=== PATIENT | female | born 1960 | race Caucasian/White ===

== ENCOUNTER 2025-06-04 12:25 | Outpatient (CLI) | payer MEDICARE, SELFPAY ==
[2025-06-04 15:39] LABS: Hematocrit 41.6 % (37.0-47.0); Hemoglobin 13.1 g/dL (12.2-16.2); Immature Granulocytes % 0.3 %; Mean Corpuscular HGB Conc 31.5 g/dL (31.8-35.4); Mean Corpuscular Hemoglobin 31.3 pg (27.0-31.2); Mean Corpuscular Volume 99.3 fl (81-99); Nucleated Red Blood Cells % 0 %; Platelet Count 286 K/mm3 (142-424); Red Blood Count 4.19 M/mm3 (4.20-5.40); Red Cell Distribution Width-SD 48.7 fL; White Blood Count 8.9 K/mm3 (4.8-10.8)
[2025-06-04 16:01] LABS: Albumin Level 3.7 g/dl (3.5-5.0); Chloride 106 mmol/L (98-107)
[2025-06-04 16:02] LABS: Potassium 3.8 mmoL/L (3.5-5.1); Sodium 140 mmol/L (136-145)
[2025-06-04 16:04] LABS: Alanine Aminotransferase 22 U/L (12-78); Anion Gap 8.8 mEq/L (5-15); Aspartate Amino Transferase 23 U/L (14-36); Blood Urea Nitrogen 8 mg/dl (7-17); Carbon Dioxide 29 mmol/L (22.0-30.0); Creatinine,Serum 0.80 mg/dl (0.52-1.04); Estimated Glomerular Filt Rate 72 ml/min (>60); GFR (African American) 87 ML/MIN (>60)
[2025-06-04 16:05] LABS: Albumin/Globulin Ratio 1.4 (1.1-1.8); Alkaline Phosphatase 105 U/L (38-126); Bilirubin,Total 0.4 mg/dl (0.2-1.3); Calcium 8.5 mg/dl (8.4-10.2); Cholesterol 209 mg/dl (140-200); Globulin 2.6 g/dL (1.3-3.2); Glucose 100 mg/dl (74-100); HDL Cholesterol 45 mg/dl (40-60); Total Protein,Serum 6.3 g/dl (6.3-8.2); Triglycerides 200 mg/dl (30-150)
[2025-06-04 16:37] LABS: Thyroid Stimulating Hormone 1.12 uIU/mL (0.465-4.68)
[2025-06-04 16:50] LABS: Hepatitis C Ab Qual. W/ RFX NEGATIVE (Negative)
[2025-06-04 18:40] LABS: Hemoglobin A1C 6.0 % (4.0-6.0)
[2025-06-05 05:19] LABS: Hepatitis B Surface Antigen Negative (Negative)
== END 2025-06-04 23:59 | disposition home or self-care (01) ==
LOC: LAB.DROPOF 06-05 12:36
PROVIDERS: PCP Family Medicine; Visit Provider Family Medicine
DX: R73.03 Prediabetes (principal); Z11.59 Encounter for screening for other viral diseases; E66.9 Obesity, unspecified
CPT/HCPCS: 80053; 80061; 83036; 84443; 85025; 86803; 87340; 87389